=== PATIENT | male | born 1935 | race Caucasian/White ===

== ENCOUNTER 2017-01-12 15:05 | Emergency (ER) ==
[2017-01-12 15:12] VITALS: BP 152/87; BMI 23.6
[2017-01-12 15:56] VITALS: TEMP 98.7
[2017-01-12] MEDS: ZOFRAN 4 MG/2 ML IM STA (15:58)
[2017-01-12] MEDS: MORPHINE 2 MG/ML SYRINGE IM STA (15:59)
--- NOTE | 2017-01-12 16:08 | CT ---
Exam: CT thorax without IV contrast. Clinical indication: Fall with right chest wall/rib injury. TECHNIQUE: Axial unenhanced CT images of the thorax were obtained followed by coronal and sagittal reformats. 3-D reconstruction of the bony structures were obtained as well. There is evidence of prior median sternotomy. The visualized bilateral humeri are intact. The bila teral clavicles are intact. The bilateral scapula are intact. The visualized thoracolumbar spine is intact. There is a mildly displaced right seventh rib fracture laterally. The remainder of the ribs are int act. There are multiple sternal wires which are fractured, but these are grossly unchanged from an x-ray dated 11/10/2007. There is some bibasilar dependent atelectatic changes. There is a calcified pulmonary granuloma with in the lingula, consistent with old healed granulomatous disease. The remainder of the pulmonary pa renchyma is unremarkable. There is no pleural abnormality. There has been prior bypass surgery. There is a small hiatal hernia. There are no enlarged axillary, hilar or mediastinal lymph nodes, by size criteria. The abdomen and pelvis is dictated separately. Impression: 1. Mildly displaced right seventh rib fracture laterally. 2. Multiple fractured sternal wires, but these are grossly unchanged from radiograph dated 11/10/19 08. 3. Small hiatal hernia.
--- NOTE | 2017-01-12 16:18 | CT ---
EXAM: CT ABDOMEN AND PELVIS HISTORY: Fall, right upper quadrant pain TECHNIQUE: CT abdomen and pelvis without intravenous contrast. Images were reconstructed using 3 m m section thickness. Reformations were prepared. COMPARISON: 12/03/2011 FINDINGS: Diagnostic limitations exist without including contrast enhanced images. No focal hepatic lesions o r injuries identified. Spleen is unremarkable. Gallbladder, pancreas and adrenal glands are within normal limits. Slight enlargement of bilateral renal cortical cystic masses since 2012. These are probably cysts although can be correlated with renal ultrasound. There is no hydronephrosis. Nons pecific mild bilateral perinephric fat stranding is slightly more noticeable than on the older exam. There is moderate atherosclerotic disease of the aorta. There is a central diaphragmatic hernia wh ich contains a minimal portion of the upper stomach, this is more noticeable than on previous exam. No gastric distension is seen. Normal appendix and general bowel gas pattern. Uterus is unremarkab le. The prostate is either absent or small. Regional surgical clips are seen. The patient jevon lee has a history of prostate cancer according to prior report. Since the previous exam, there has been compression fracture at L5 which has been treated with kypho plasty. There is severe degenerative disc and facet disease of the lower spine. Transitional verte bral body unit at the lumbosacral junction. Lowermost fully formed disc space taken as L5/S1. Ther e is a minimally displaced acute rib fracture laterally on the right at approximately T8 level.. Se e also same day CT thorax report. No pneumoperitoneum. IMPRESSION: 1. No acute injuries at the level of the abdomen and pelvis proper identified. There is a right-si ded rib fracture at approximately the T8 level. 2. Enlarging renal cysts since 2011 likely expected evolution. Correlate with ultrasound if indica kay. 3. Moderate atherosclerotic disease. 4. Enlarging diaphragmatic hernia.
--- NOTE | 2017-01-12 16:40 | ED.PDOC ---
General ED Provider: Dr. SARAH BETH NOLASCO Chief Complaint: Fall Stated Complaint: Patient states he fell 4 days ago hitting the table. States has poor balance. Now has right chest wall pain. Describes it as severe. Time Seen by Physician: 16:38 Mode of Arrival: Walk-In Information Source: Patient, Family Primary Care Provider: MICHAELA MENDEZ Nursing and Triage Documentation Reviewed and Agree: Yes Trauma/Injury Complaint Exam - Truncal Trauma Complaint/Exam Location of Pain: Reports: Right, Chest Onset: 4 days ago Symptoms Are: Still present Onset of Pain: Reports: Immediate Initial Severity: Moderate Current Severity: Severe Mechanism: Reports: Blunt trauma, Fall Aggravating: Reports: Movement, Deep breathing, Cough Alleviating: Reports: None Associated Signs and Symptoms: Reports: Chest pain. Denies: Short of air, Cough , Hematuria, Abdominal pain, Fever, Nausea, Vomiting Related History: Reports: Similar episode C-Collar in Place: no Immobilization Removed Post Exam: No Vertebral Tenderness Present: No Vertebral Deformity Present: No Trachial Deviation Present: No JVD Present: No Crepitus Present: No Diminished Breath Sounds: No Reproducible Pain at: right chest wall Muffled Heart Sounds Present: No Paradoxical Chest Wall Movement Present: No Abdominal Guarding Present: No Referred Shoulder Pain (Kehr's Sign) Present: No Skin Findings: Present: Normal findings Chest and Back Picture: 1 - tenderness to palpation Differential Diagnoses: Chest Wall Contusion, Pneumothorax, Rib Fracture Review of Systems - Review Of Systems Constitutional: Reports: No symptoms Eyes: Reports: No symptoms Ears, Nose, Mouth, Throat: Reports: No symptoms Respiratory: Reports: No symptoms Cardiac: Reports: Chest pain GI: Reports: No symptoms : Reports: No symptoms Musculoskeletal: Reports: No symptoms Skin: Reports: No symptoms Neurological: Reports: No symptoms Endocrine: Reports: No symptoms Hematologic/Lymphatic: Reports: No symptoms All Other Systems: Reviewed and Negative Past Medical History - Past Medical History Endocrine: Reports: Dyslipidemia Cardiovascular: Reports: CAD, Hypertension Respiratory: Reports: None Hematological: Reports: None Gastrointestinal: Reports: None Genitourinary: Reports: None Neuro/Psych: Reports: Dementia Musculoskeletal: Reports: Gout Cancer: Reports: None - Surgical History General Surgical History: Reports: CABG - Family History Family History: Reports: None - Social History Smoking Status: Never smoker Hx Substance Use: No Alcohol Screening: None Physical Exam - Physical Exam Appearance: Ill-appearing, Well-nourished Ill-appearing: Moderate Pain Distress: Severe Eyes: AGUSTIN, EOMI, Conjunctiva clear ENT: Nose normal, Oropharynx normal Neck: Supple Respiratory: Airway patent, Breath sounds clear, Breath sounds equal, Respirations nonlabored Cardiovascular: Tachycardia GI/: Soft, Nontender, No masses, Bowel sounds normal, No Organomegaly Musculoskeletal: Normal strength, ROM intact, No edema, No calf tenderness Skin: Warm, Dry, Normal color Neurological: Sensation intact, Motor intact, Reflexes intact, Alert, Oriented Psychiatric: Anxious Critical Care Note - Critical Care Note Total Time (mins): 0 Course - Course Orders, Labs, Meds: Orders Category Date Time Status Morphine Sulfate [Morphine 2 mg/ml Syringe] MEDS 01/12/17 15:36 Discontinued 2 mg IM ONCE STA Ondansetron HCl/Pf [Zofran 4 mg/2 ml] MEDS 01/12/17 15:36 Discontinued 4 mg IM ONCE STA CT ABDOMEN/PELVIS WO CONTRAST Stat RADS 01/12/17 15:[address] CHEST W/O CONTRAST Stat RADS 01/12/17 15:37 Completed Medications Discontinued Medications Generic Name Dose Route Start Last Admin Trade Name Freq PRN Reason Stop Dose Admin Morphine Sulfate 2 mg 01/12/17 15:36 01/12/17 15:59 Morphine 2 Mg/Ml Syringe IM 01/12/17 15:37 2 mg ONCE STA Administration Ondansetron HCl 4 mg 01/12/17 15:36 01/12/17 15:58 Zofran 4 Mg/2 Ml IM 01/12/17 15:37 4 mg ONCE STA Administration Vital Signs: Temp Pulse Resp BP Pulse Ox 01/12/17 15:56 98.7 F 01/12/17 15:05 100.3 F H 119 H 20 152/87 H 94 L Departure - Departure Time of Disposition: 16:39 Disposition: HOME SELF-CARE Discharge Problem: Closed fracture of seven ribs of right side Qualifiers: Encounter type: initial encounter Qualifier Code: (S22.41XA) Multiple fractures of ribs, right side, initial encounter for closed fracture Instructions: Rib Fracture (ED) Condition: Fair Pt referred to PMD for follow-up: Yes Additional Instructions: Take Medications as prescribed Follow up with PCP in 5 days Watch for increased risk of falls with [place] Prescriptions: Hydrocodone/Acetaminophen [[place] 5-325 Tablet] 1 tab PO Q6HR PRN #12 tablet PRN Reason: PAIN Allergies/Adverse Reactions: Allergies No Known Allergies Allergy (Verified 01/12/17 15:10) Home Medications: Ambulatory Orders Allopurinol [Zyloprim] 100 mg PO DAILY 05/26/13 Enalapril Maleate [Vasotec] 5 mg PO DAILY 05/26/13 Megestrol Acetate [Megace] 40 mg PO BID 05/26/13 Metoprolol Succinate [Toprol Xl] 25 mg PO BID 05/26/13 Multivitamin [Multi Vitamin Daily] 1 tab PO DAILY 05/26/13 Atorvastatin Calcium [Lipitor] 40 mg PO BEDTIME 01/12/17 Donepezil HCl [Aricept] 5 mg PO DAILY 01/12/17 Hydrocodone/Acetaminophen [[place] 5-325 Tablet] 1 tab PO Q6HR PRN #12 tablet 02/23 Disposition Discussed With: Patient
== END 2017-01-12 16:53 | disposition home or self-care (01) ==
LOC: ED 15:05
DX: S22.41XA Multiple fractures of ribs, right side, initial encounter for closed fracture (principal); R26.89 Other abnormalities of gait and mobility; W19.XXXA Unspecified fall, initial encounter
CPT/HCPCS: 96372; 99283

== ENCOUNTER 2017-01-15 16:34 | Outpatient (CLI) ==
--- NOTE | 2017-01-15 17:04 | DI ---
EXAM: Chest two view, frontal and lateral views. HISTORY: Persistent chest pain. Rib fracture follow-up. COMPARISON: CT 01/12/2017. FINDINGS: Median sternotomy wires mediastinal surgical clips noted with fracture of all sternotomy wires. Heart size is normal. Atherosclerotic calcifications present. Lungs are clear without pleu ral effusion or pneumothorax. Displaced right seventh and eighth rib fractures noted. Degenerative changes present in the spine. IMPRESSION: Displaced right lateral seventh and eighth rib fractures. No acute cardiopulmonary process
[2017-01-15 17:06] LABS: BASOPHILS # (AUTO) 0.1 K/uL (0-0.2); BASOPHILS % (AUTO) 0.5 % (0.0-3.0); EOSINOPHILS # (AUTO) 0.2 K/ul (0.0-0.7); EOSINOPHILS % (AUTO) 1.5 % (0.0-7.0); HEMATOCRIT 35.9 % (42.0-52.0); HEMOGLOBIN 12.3 g/dl (14.0-18.0); IMMATURE GRANULOCYTE % (AUTO) 0.3 % (0.0-5.0); LYMPHOCYTES # (AUTO) 2.3 K/uL (0.60-3.4); LYMPHOCYTES % (AUTO) 19.3 (10.0-50.0); MEAN CORPUSCULAR HEMOGLOBIN 31.9 pg (27.0-31.0); MEAN CORPUSCULAR HGB CONC 34.3 (31.8-35.4); MEAN CORPUSCULAR VOLUME 93.2 fl (80.0-94.0); MONOCYTES % (AUTO) 8.7 (0-10); NEUTROPHILS # (AUTO) 8.1 K/ul (2.0-6.9); NEUTROPHILS % (AUTO) 69.7; PLATELET COUNT 302 10^3/uL (140-440); RED BLOOD COUNT 3.85 10^6/ul (4.70-6.10); WHITE BLOOD COUNT 11.66 K/ul (4.2-10.2)
[2017-01-15 17:24] LABS: ALBUMIN 3.4 g/dL (3.4-5.0); ALBUMIN/GLOBULIN RATIO 0.79; ANION GAP 12.8; BILIRUBIN,TOTAL 0.47 mg/dL (0.00-1.20); BUN/CREATININE RATIO 15.25; CALCIUM 9.2 mg/dL (8.2-10.2); CREATININE 1.77 mg/dL (0.60-1.10); POTASSIUM 3.8 mmol/L (3.5-5.1); TOTAL PROTEIN 7.7 g/dL (5.8-8.1)
--- NOTE | 2017-01-15 17:28 | CT ---
EXAM: CT head without contrast HISTORY: Trauma COMPARISON: CT head from 01/22/2014 TECHNIQUE: Helical axial CT of the head was performed without contrast. Coronal and sagittal reconst ructions were performed. FINDINGS: There is no acute abnormality present. There is no hemorrhage, mass, midline shift, abnormal extra-a xial fluid collection, hydrocephalus or evolving ischemia. The crisostomo-white matter junction is well ma intained. There is fairly advanced atrophy and chronic small vessel ischemia in the white matter of both cerebral hemispheres. Brain parenchyma, ventricles and sulci are otherwise normal. There are no acute calvarial lesions. Visualized orbits and globes are unremarkable. The mastoid a ir cells demonstrate no significant soft tissue opacification. The visualized paranasal sinuses show no air-fluid levels. IMPRESSION: 1. No acute intracranial abnormality. 2. Atrophy and small vessel ischemic change.
== END 2017-01-15 16:35 | disposition home or self-care (01) ==
LOC: RAD 16:34
PROVIDERS: ATTEND Family Medicine
DX: R26.9 Unspecified abnormalities of gait and mobility (principal); S22.41XD Multiple fractures of ribs, right side, subsequent encounter for fracture with routine healing; W19.XXXA Unspecified fall, initial encounter
CPT/HCPCS: 36415; 80053; 85025

== ENCOUNTER 2017-01-18 11:03 | Outpatient (CLI) | payer OTHER ==
[2017-01-18 11:26] LABS: ANION GAP 14.8; BUN/CREATININE RATIO 12.29; CALCIUM 9.1 mg/dL (8.2-10.2); CREATININE 1.22 mg/dL (0.60-1.10); POTASSIUM 3.8 mmol/L (3.5-5.1)
== END 2017-01-18 11:04 | disposition home or self-care (01) ==
LOC: NONPT 11:03
PROVIDERS: ATTEND Family Medicine
DX: R41.0 Disorientation, unspecified (principal); I10 Essential (primary) hypertension
CPT/HCPCS: 80048

== ENCOUNTER 2017-02-01 08:10 | Emergency (ER) ==
[2017-02-01 08:18] VITALS: BP 149/72; TEMP 99.3; BMI 22.8
--- NOTE | 2017-02-01 08:38 | ED.PDOC ---
General ED Provider: Dr. RAJEEV PYLE Chief Complaint: Extremity Pain/Injury Stated Complaint: R arm pain; wrist, forearm; no neck pain Time Seen by Physician: 08:20 Mode of Arrival: Walk-In Information Source: Patient, Family Exam Limitations: Dementia (Grandson has to explain what is old and what may be new) Primary Care Provider: MICHAELA CADENA Nursing and Triage Documentation Reviewed and Agree: Yes Review of Systems - Review Of Systems Constitutional: Reports: Fever (low grade 99.8) Respiratory: Reports: No symptoms. Denies: Cough, Orthopnea, Short of air Cardiac: Reports: No symptoms Musculoskeletal: Reports: Joint pain (R wrist) Skin: Reports: No symptoms. Denies: Bruising, Change in color All Other Systems: Reviewed and Negative Past Medical History - Past Medical History Previously Healthy: Yes Endocrine: Reports: Dyslipidemia Cardiovascular: Reports: CAD, Hypertension Respiratory: Reports: None Hematological: Reports: None Gastrointestinal: Reports: None Genitourinary: Reports: None Neuro/Psych: Reports: Dementia Musculoskeletal: Reports: Gout Cancer: Reports: None - Surgical History General Surgical History: Reports: CABG - Family History Family History: Reports: None - Social History Smoking Status: Never smoker Hx Substance Use: No Alcohol Screening: None Physical Exam - Physical Exam Appearance: Well-appearing Pain Distress: Mild (Active ROM more discommfort with pronation/suppination than Passive ROM; wrist likewise) Eyes: AGUSTIN, EOMI Neck: Supple Respiratory: Airway patent, Respirations nonlabored Skin: Warm, Dry, Normal color (No ecchymosis;forearm) Neurological: Sensation intact, Motor intact Psychiatric: Affect appropriate, Mood appropriate Interpretation - Radiology Interpretation Radiology Interpretation By: Radiologist Xray Comments: 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 Radiology Results: Positive Exam Interpreted: CXR Xray Comments: developing pneumonia LLL; error by radiology reading for pneumothorax Critical Care Note - Critical Care Note Total Time (mins): 30 Course - Course Hematology/Chemistry: 02/01/17 10:03 02/01/17 10:03 Orders, Labs, Meds: Lab Review 02/01/17 02/01/17 10:03 12:00 WBC 14.08 H RBC 3.89 L Hgb 12.3 L Hct 36.3 L MCV 93.3 MCH 31.6 H MCHC 33.9 RDW Coeff of [place] 13.4 Plt Count 272 Immature Gran % (Auto) 0.5 Neut % (Auto) 80.6 Lymph % (Auto) 10.7 [place] % (Auto) 7.7 Eos % (Auto) 0.1 Baso % (Auto) 0.4 Immature Gran # (Auto) 0.1 Neut # 11.4 H Lymph # 1.5 [place] # 1.1 Eos # 0.0 Baso # 0.1 Sodium 139 Potassium 3.9 Chloride 106 Carbon Dioxide 19 L Anion Gap 17.9 BUN 12 Creatinine 1.18 H Estimated GFR (MDRD) 59.00 BUN/Creatinine Ratio 10.16 Glucose 105 Uric Acid 4.5 Calcium 9.5 Total Bilirubin 1.02 AST 22 ALT 16 Alkaline Phosphatase 102 Total Protein 7.8 Albumin 3.5 Globulin 4.3 Albumin/Globulin Ratio 0.81 Urine Color Yellow Urine Clarity Clear Urine pH 5.5 Ur Specific [place] 1.020 Urine Protein 1+ Urine Glucose (UA) Negative Urine Ketones Negative Urine Blood Trace-intact Urine Nitrite Negative Urine Bilirubin Negative Urine Urobilinogen 0.2 Ur Leukocyte Esterase Negative Ur Squamous Epith Cells Not present Urine Bacteria Trace Orders Category Date Time Status Bladder [ED BLADDER SCAN] .ONCE EMERGENCY 02/01/17 11:40 Active Cock-up splint [ED SPLINT APPLICATION] .ONCE EMERGENCY 02/01/17 10:04 Active CBC W/ AUTO DIFF Stat LAB 02/01/17 10:03 Completed COMPREHENSIVE METABOLIC PANEL Stat LAB 02/01/17 10:03 Completed URIC ACID Stat LAB 02/01/17 10:03 Completed URINALYSIS C & S IF INDICATED Stat LAB 02/01/17 12:00 Completed CHEST, 2 VIEWS PA & LAT Stat RADS 02/01/17 10:32 Completed WRIST, RIGHT 3 VIEWS Stat RADS 02/01/17 08:40 Completed Vital Signs: Temp Pulse Resp BP Pulse Ox 02/01/17 08:10 99.3 F 84 16 149/72 H 96 Departure - Departure Time of Disposition: 12:27 Disposition: HOME SELF-CARE Discharge Problem: Pneumonia Instructions: Community Acquired Pneumonia (ED) Condition: Good Pt referred to PMD for follow-up: Yes (Call for appointment; follow up next week ) Additional Instructions: Take antibiotic as prescribed; follow up with Dr. Cadena Prescriptions: Azithromycin [Zithromax] 500 mg PO DAILY #3 tablet Allergies/Adverse Reactions: Allergies No Known Allergies Allergy (Verified 02/01/17 08:19) Home Medications: Ambulatory Orders Allopurinol [Zyloprim] 100 mg PO DAILY 05/26/13 Enalapril Maleate [Vasotec] 5 mg PO DAILY 05/26/13 Megestrol Acetate [Megace] 40 mg PO BID 05/26/13 Metoprolol Succinate [Toprol Xl] 25 mg PO BID 05/26/13 Multivitamin [Multi Vitamin Daily] 1 tab PO DAILY 05/26/13 Atorvastatin Calcium [Lipitor] 40 mg PO BEDTIME 01/12/17 Donepezil HCl [Aricept] 5 mg PO DAILY 01/12/17 Azithromycin [Zithromax] 500 mg PO DAILY #3 tablet 02/01/17 Disposition Discussed With: Family (Grandson)
--- NOTE | 2017-02-01 09:50 | DI ---
EXAM: Right wrist three-view HISTORY: Pain, swelling COMPARISON: None TECHNIQUE: Three views right wrist were performed FINDINGS: Bones appear demineralized. No fracture. Severe narrowing of the radiocarpal articulati ons. Widening of the scapholunate distance with remodeling of the lunate and suggestion of scapholu [place] advanced collapse. Moderate narrowing STT joint. Mild narrowing first CMC joint. Degenerative cystic change in the distal ulna. Atherosclerotic vascular calcification. IMPRESSION: 1. No fracture. 2. 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
[2017-02-01 10:05] LABS: BASOPHILS # (AUTO) 0.1 K/uL (0-0.2); BASOPHILS % (AUTO) 0.4 % (0.0-3.0); EOSINOPHILS % (AUTO) 0.1 % (0.0-7.0); HEMATOCRIT 36.3 % (42.0-52.0); HEMOGLOBIN 12.3 g/dl (14.0-18.0); IMMATURE GRANULOCYTE % (AUTO) 0.5 % (0.0-5.0); LYMPHOCYTES # (AUTO) 1.5 K/uL (0.60-3.4); LYMPHOCYTES % (AUTO) 10.7 (10.0-50.0); MEAN CORPUSCULAR HEMOGLOBIN 31.6 pg (27.0-31.0); MEAN CORPUSCULAR HGB CONC 33.9 (31.8-35.4); MEAN CORPUSCULAR VOLUME 93.3 fl (80.0-94.0); MONOCYTES # (AUTO) 1.1 K/uL (0.4-2.0); MONOCYTES % (AUTO) 7.7 (0-10); NEUTROPHILS # (AUTO) 11.4 K/ul (2.0-6.9); NEUTROPHILS % (AUTO) 80.6; PLATELET COUNT 272 10^3/uL (140-440); RED BLOOD COUNT 3.89 10^6/ul (4.70-6.10); WHITE BLOOD COUNT 14.08 K/ul (4.2-10.2)
[2017-02-01 10:24] LABS: ALBUMIN 3.5 g/dL (3.4-5.0); ALBUMIN/GLOBULIN RATIO 0.81; ANION GAP 17.9; CALCIUM 9.5 mg/dL (8.2-10.2); POTASSIUM 3.9 mmol/L (3.5-5.1); TOTAL PROTEIN 7.8 g/dL (5.8-8.1)
[2017-02-01 10:25] LABS: BILIRUBIN,TOTAL 1.02 mg/dL (0.00-1.20); BUN/CREATININE RATIO 10.16; CREATININE 1.18 mg/dL (0.60-1.10); URIC ACID 4.5 mg/dL (2.6-7.2)
--- NOTE | 2017-02-01 11:04 | DI ---
EXAM: Two views of the chest. History: Fever and elevated white blood cell count. Comparison: Chest radiograph 01/15/2017 Findings: Atherosclerotic vascular calcifications. Stable sternotomy wires with some discontinuous. Artificial heart valve. Hazy left lower lung opacity. Pneumothorax. Heart is mildly enlarged. M ildly displaced right seventh rib fracture. Impression: 1. Hazy left lower lung opacity could represent atelectasis, pneumonia and/or small pleural effusio n. 2. Mildly displaced right seventh rib fracture.
[2017-02-01 12:12] LABS: BILIRUBIN,URINE Negative (NEGATIVE); KETONES,URINE Negative (NEGATIVE); LEUKOCYTE ESTERASE ,URINE Negative (NEGATIVE); NITRITE,URINE Negative (NEGATIVE); PH,URINE 5.5 (5-9); PROTEIN,URINE 1+ (NEGATIVE); URINE, BLOOD Trace-intact (NEGATIVE)
[2017-02-01 12:17] LABS: ADD URINE MICROSCOPIC YES
[2017-02-01 12:20] LABS: BACTERIA,URINE TRACE (NOT PRESENT)
== END 2017-02-01 12:37 | disposition home or self-care (01) ==
LOC: ED 08:10
DX: J18.9 Pneumonia, unspecified organism (principal); M19.031 Primary osteoarthritis, right wrist; M25.531 Pain in right wrist; S69.91XA Unspecified injury of right wrist, hand and finger(s), initial encounter; R50.9 Fever, unspecified; I10 Essential (primary) hypertension; F03.90 Unspecified dementia, unspecified severity, without behavioral disturbance, psychotic disturbance, mood disturbance, and anxiety
CPT/HCPCS: 36415; 80053; 81001; 84550; 85025; 99283

== ENCOUNTER 2017-04-04 14:59 | Outpatient (CLI) | payer OTHER ==
--- NOTE | 2017-04-04 15:33 | DI ---
EXAM: Single view of the pelvis. History: Gait difficulty. Findings: Osteopenia. No acute fracture or dislocation. Mild narrowing of bilateral hip joints. K yphoplasty seen at L5. Atherosclerotic vascular calcifications. Impression: No acute osseous abnormality.
--- NOTE | 2017-04-04 15:34 | DI ---
Exam: Left hip two-view. HISTORY: Gait difficulty. Comparison: 02/15/2016. Findings: Two images of the left hip are submitted. These demonstrate mild degenerative findings w ith no acute fracture or dislocation. There is no osseous erosion. The adjacent left henri pelvis a ppears intact. There is partial visualization of metallic clips or markers in the region of the pros tucker gland. There is no focal soft tissue swelling. Impressions: Mild degenerative findings in the left hip with no acute fracture or dislocation.
== END 2017-04-04 15:00 | disposition home or self-care (01) ==
LOC: RAD 14:59
PROVIDERS: ATTEND Family Medicine
DX: R26.9 Unspecified abnormalities of gait and mobility (principal); M25.552 Pain in left hip; M79.606 Pain in leg, unspecified; W19.XXXD Unspecified fall, subsequent encounter

== ENCOUNTER 2017-08-01 14:03 | Outpatient (CLI) | END 2017-08-01 14:04 | disposition short-term general hospital (02) | LOC: AMBL 14:03 | PROVIDERS: ATTEND Family Medicine | DX: R55 Syncope and collapse (principal) ==